=== PATIENT | female | born 1935 | race Caucasian/White ===

== ENCOUNTER 2023-09-13 15:43 | Inpatient (IN) | payer MEDICARE ==
[~2023-09-13] VITALS: Ht 162.6 cm; Wt 75.3 kg
[2023-09-13 16:00] VITALS: PULSE 130; PULSE 97; RESP 47; O2SAT 97
[2023-09-13] MEDS ORDERED: MethylPREDNISolone SOD SUCC 125 MG/2 ML VIAL IVP ONE (16:00)
[2023-09-13] MEDS ORDERED: 0.9% SODIUM CHLORIDE 10 ML SYRINGE IVP PRN (16:00)
[2023-09-13] MEDS ORDERED: NITROGLYCERIN 2% (1 GM=INCH) OINTMENT PACKET TP ONE (16:00)
[2023-09-13] MEDS ORDERED: DILT-72 PO (16:08)
[2023-09-13] MEDS ORDERED: SIMV-260 PO (16:08)
[2023-09-13] MEDS ORDERED: POTA-206 PO (16:08)
[2023-09-13] MEDS ORDERED: THIA100T80 PO (16:08)
[2023-09-13] MEDS ORDERED: MAGN-169 PO (16:08)
[2023-09-13] MEDS ORDERED: OMEP20 PO (16:08)
[2023-09-13 16:25] LABS: COVID AG,FIA SOURCE NASAL SWAB
[2023-09-13 16:31] LABS: BASOPHILS % (AUTO) 0.2 % (0.0-2.0); EOSINOPHILS % (AUTO) 0 % (1.0-6.0); HEMATOCRIT 37.3 % (36-46); HEMOGLOBIN 12.3 g/dL (12.0-16.0); LYMPHOCYTES # (AUTO) 0.7 K/uL (1.0-4.8); LYMPHOCYTES % (AUTO) 5.5 % (22.0-44.0); MEAN CORPUSCULAR HEMOGLOBIN 29.4 pg (26.0-34.0); MEAN CORPUSCULAR VOLUME 89 fL (80-100); MONOCYTES % (AUTO) 8.6 % (2.0-9.0); NEUTROPHILS # (AUTO) 10.3 K/uL (1.8-7.7); PLATELET COUNT (AUTO) 725 K/uL (150-450); RED BLOOD CELL COUNT(AUTO) 4.18 MIL/uL (4.00-5.20); RED CELL DISTRIBUTION WIDTH 14.2 % (11.5-14.5)
[2023-09-13 16:32] LABS: NEUTROPHILS % (AUTO) 85.7 % (40.0-70.0)
[2023-09-13 16:33] LABS: APPEARANCE,URINE HAZY (CLEAR); BILIRUBIN,URINE NEGATIVE (NEGATIVE); COLOR,URINE YELLOW (YELLOW); GLUCOSE, URINE (UA) NEGATIVE (NEGATIVE); KETONES,URINE 40-60 mg/dL (NEGATIVE); LEUKOCYTE ESTERASE ,URINE LARGE (NEGATIVE); NITRATE,URINE POSITIVE (NEGATIVE); OCCULT BLOOD,URINE SMALL (NEGATIVE); PROTEIN,URINE 30-70 mg/dL (NEGATIVE); SPECIFIC GRAVITIY, URINE 1.026 (1.003-1.030)
[2023-09-13 16:41] LABS: ANION GAP 17 mmol/L (8-16); CALCIUM, TOTAL 9.1 mg/dL (8.8-10.5); CARBON DIOXIDE 20 mmol/L (22-29); CHLORIDE 93 mmol/L (98-107); CREATININE 0.72 mg/dL (0.60-1.30); GLOMERULAR FILTR. RATE CALC > 60 mL/min (>60); GLUCOSE,RANDOM 180 mg/dL (70-110); POTASSIUM 3.8 mmol/L (3.5-5.1); SODIUM SERUM 130 mmol/L (136-145); UREA NITROGEN, BLOOD 18 mg/dL (7-18)
[2023-09-13 16:44] LABS: TROPONIN I-HIGH SENSITIVITY 40 ng/L (<51)
[2023-09-13 16:46] LABS: ALANINE AMINOTRANSFERASE 27 U/L (12-78); ALBUMIN 3.3 g/dL (3.4-5.0); ALKALINE PHOSPHATASE 121 U/L (46-116); ASPARTATE AMINOTRANSFERASE 18 U/L (15-37); BILIRUBIN,TOTAL 1.2 mg/dL (0.1-1.0); TOTAL PROTEIN, SERUM 6.9 g/dL (6.4-8.2)
[2023-09-13 16:48] LABS: B-TYPE NATRIURETIC PEPTIDE 471 pg/mL (0-100)
[2023-09-13 16:52] LABS: BACTERIA,URINE Many /HPF (None Seen); D-DIMER 8.76 mg/L FEU (0.00-0.50); INR 1.3 (0.9-1.1); PROTHROMBIN TIME 13.7 SEC (9.4-11.6); SQUAMOUS EPITHELIAL CELL,UR Few /LPF (None Seen); WBC,URINE 26-50 /HPF (0-5)
[2023-09-13 16:54] LABS: LACTIC ACID 2.7 mmol/L (0.4-2.0); SARS-COV2 (COVID) ANTIGEN,FIA Negative (Negative)
[2023-09-13 16:55] LABS: INFLUENZA TYPE A NEGATIVE FOR TYPE A (NEGATIVE); INFLUENZA TYPE B NEGATIVE FOR TYPE B (NEGATIVE)
[2023-09-13] MEDS ORDERED: IOHEXOL 350 MG/ML 100 ML VIAL ONE (17:11)
[2023-09-13] MEDS ORDERED: SODIUM CHLORIDE 0.9% 100 ML ONE (17:12)
[2023-09-13] MEDS ORDERED: SODIUM CHLORIDE 0.9% 1,550 ML IV ONE (17:15)
[2023-09-13] MEDS ORDERED: DILT120C48 PO (17:23)
[2023-09-13] MEDS ORDERED: APIX5TAB PO (17:23)
[2023-09-13] MEDS ORDERED: LISI1TAB53 PO (17:23)
[2023-09-13] MEDS ORDERED: PIPERACILLIN/TAZO 3.375 GM/D5W 50 ML IV ONE (17:30)
[2023-09-13] MEDS ORDERED: FUROSEMIDE 20 MG/2 ML VIAL IVP ONE (17:45)
[2023-09-13] MEDS ORDERED: MORPHINE SULFATE 2 MG/ML SYRINGE IVP ONE (18:00)
[2023-09-13 18:30] VITALS: PULSE 106; PULSE 112; RESP 41; O2SAT 93; O2SAT 94
[2023-09-13] MEDS ORDERED: *CLINICAL-LEVOFLOXACIN IVPB DOSING CLINICAL ONE (19:45)
[2023-09-13] MEDS ORDERED: ALBUTEROL SULFATE 2.5 MG/0.5 ML NEB SOLUTION NEB PRN (19:45)
[2023-09-13] MEDS ORDERED: SODIUM CHLORIDE 0.9% 1,000 ML IV SCH (19:45)
[2023-09-13] MEDS ORDERED: IPRATROPIUM BROMIDE 0.5 MG/2.5 ML NEB SOLUTION NEB PRN (19:45)
[2023-09-13] MEDS ORDERED: ONDANSETRON HCL 4 MG/2 ML VIAL IVP PRN (19:45)
[2023-09-13] MEDS: MetroNIDAZOLE 500 MG/NACL 100 ML IV SCH (20:14)
[2023-09-13] MEDS: LEVOFLOXACIN 750 MG/D5% WATER 150 ML IV SCH (21:29)
[2023-09-13] MEDS: CHLORHEXIDINE GLUCONATE 2% TOWELETTE [2'S/6'S] TP SCH (21:40)
[2023-09-13 21:54] LABS: ABG BASE EXCESS -6.8 mmol/L (-2.0-3.0); ABG CARBOXYHEMOGLOBIN 0.8 % (0.0-1.5); ABG HCO3 19.7 mmol/L (22.0-26.0); ABG METHEMOGLOBIN 0.9 % (0.0-1.5); ABG OXYGEN CONTENT 14.7 mL/dL (15.0-23.0); ABG OXYGEN SATURATION 95.5 % (95.0-98.0); ABG OXYHEMOGLOBIN 93.9 % (94.0-100.0); ABG PCO2 29 mmHg (35-45); ABG PH 7.404 (7.35-7.450); ABG TOTAL HEMOGLOBIN 11.1 G/dL (12.0-18.0); PO2, ARTERIAL BG 74.9 mmHg (71.0-79.0); SOURCE, BLOOD GAS ARTERIAL; TEMPERATURE, FAHRENHEIT, BG 98.5 FAHREN (96.0-98.6)
[2023-09-13 21:55] LABS: ALLEN TEST, BLOOD GAS POS; INSPIRATORY TIME, BG 0.9 SEC; O2 DEVICE,BLOOD GAS BIPAP (ROOM AIR); SITE, BLOOD GAS RT RADIAL; SPONTANEOUS VT, BG 398 ml
[2023-09-13 22:39] VITALS: PULSE 94; RESP 44; O2SAT 93
[2023-09-13] MEDS ORDERED: KETOROLAC TROMETHAMINE 15 MG/ML VIAL IVP ONE (23:00)
[2023-09-13 23:47] LABS: BASOPHILS % (AUTO) 0.2 % (0.0-2.0); EOSINOPHILS % (AUTO) 0 % (1.0-6.0); HEMATOCRIT 30.6 % (36-46); HEMOGLOBIN 10.2 g/dL (12.0-16.0); LYMPHOCYTES # (AUTO) 0.2 K/uL (1.0-4.8); LYMPHOCYTES % (AUTO) 1.2 % (22.0-44.0); MEAN CORPUSCULAR HEMOGLOBIN 29.7 pg (26.0-34.0); MEAN CORPUSCULAR HGB CONC 33.5 G/dL (31.0-37.0); MEAN CORPUSCULAR VOLUME 89 fL (80-100); MONOCYTES # (AUTO) 0.9 K/uL (0.1-1.0); NEUTROPHILS # (AUTO) 16.4 K/uL (1.8-7.7); PLATELET COUNT (AUTO) 531 K/uL (150-450); RED BLOOD CELL COUNT(AUTO) 3.45 MIL/uL (4.00-5.20); RED CELL DISTRIBUTION WIDTH 14.3 % (11.5-14.5); WHITE BLOOD COUNT (AUTO) 17.5 K/uL (4.5-11.0)
[2023-09-13 23:50] LABS: NEUTROPHILS % (AUTO) 93.6 % (40.0-70.0)
[2023-09-14] VITALS (7 sets, daily range): BP systolic 104–216; BP diastolic 55–73; PULSE 107–135; RESP 31–42; TEMP 97.5–99.2; O2SAT 96
[2023-09-14 00:08] LABS: TROPONIN I-HIGH SENSITIVITY 32 ng/L (<51)
[2023-09-14] MEDS ORDERED: IOHEXOL 350 MG/ML 100 ML VIAL ONE (00:13)
[2023-09-14] MEDS ORDERED: SODIUM CHLORIDE 0.9% 100 ML ONE (00:13)
[2023-09-14] MEDS ORDERED: DiphenhydrAMINE HCL 50 MG/ML VIAL IVP ONE (00:45)
[2023-09-14] MEDS ORDERED: MELATONIN 3 MG TABLET PO ONE (00:45)
[2023-09-14] MEDS ORDERED: DILTIAZEM HCL 5 MG/ML 5 ML VIAL IVP ONE (01:15)
[2023-09-14 02:36] LABS: % IRON SATURATION 17.4 % (22-44)
[2023-09-14] MEDS ORDERED: SODIUM CHLORIDE 0.9% 250 ML IV ONE ×2 (03:48→22:01)
[2023-09-14] MEDS: MetroNIDAZOLE 500 MG/NACL 100 ML IV SCH ×3 (04:13→20:23)
[2023-09-14 06:24] LABS: HEMATOCRIT 31.6 % (36-46); HEMOGLOBIN 10.5 g/dL (12.0-16.0); MEAN CORPUSCULAR HGB CONC 33.1 G/dL (31.0-37.0); MEAN CORPUSCULAR VOLUME 91 fL (80-100); PLATELET COUNT (AUTO) 409 K/uL (150-450); RED BLOOD CELL COUNT(AUTO) 3.49 MIL/uL (4.00-5.20); RED CELL DISTRIBUTION WIDTH 14.6 % (11.5-14.5); WHITE BLOOD COUNT (AUTO) 18.8 K/uL (4.5-11.0)
[2023-09-14 06:39] LABS: ANION GAP 14 mmol/L (8-16); CALCIUM, TOTAL 8.1 mg/dL (8.8-10.5); CARBON DIOXIDE 20 mmol/L (22-29); CHLORIDE 99 mmol/L (98-107); CREATININE 0.65 mg/dL (0.60-1.30); GLOMERULAR FILTR. RATE CALC > 60 mL/min (>60); GLUCOSE,RANDOM 125 mg/dL (70-110); SODIUM SERUM 133 mmol/L (136-145); UREA NITROGEN, BLOOD 19 mg/dL (7-18)
[2023-09-14 06:43] LABS: TROPONIN I-HIGH SENSITIVITY 32 ng/L (<51)
[2023-09-14] MEDS ORDERED: HEPARIN SODIUM,PORCINE 5,000 UNITS/ML VIAL IVP PRN ×2 (08:30)
[2023-09-14 08:56] LABS: BAND NEUTROPHILS % (MANUAL) 19 % (0-5); EOSINOPHILS % (MANUAL) 1 % (1-6); LYMPHOCYTES % (MANUAL) 2 % (22-44); MONOCYTES % (MANUAL) 1 % (2-9); RBC MORPHOLOGY COMMENT NORMAL RBC MORPH; SEGMENTED NEUTROPHILS % 77 % (40-70); TOTAL CELLS COUNTED 100
[2023-09-14 09:38] LABS: INR 1.4 (0.9-1.1)
[2023-09-14] MEDS: FAMOTIDINE 20 MG/2 ML VIAL IVP SCH ×2 (09:42→20:22)
[2023-09-14] MEDS: HEPARIN SODIUM 25000 UNITS/D5W 250 ML IV PRN (09:45)
[2023-09-14] MEDS: RINGERS SOLUTION,LACTATED 1,000 ML IV SCH (11:13)
[2023-09-14 11:33] LABS: OCCULT BLOOD,GASTRIC FLUID POSITIVE (NEGATIVE); PH, GASTRIC OKAY
[2023-09-14 14:27] LABS: HEMATOCRIT 31.6 % (36-46); HEMOGLOBIN 10.3 g/dL (12.0-16.0); MEAN CORPUSCULAR HEMOGLOBIN 29.4 pg (26.0-34.0); MEAN CORPUSCULAR HGB CONC 32.5 G/dL (31.0-37.0); MEAN CORPUSCULAR VOLUME 90 fL (80-100); PLATELET COUNT (AUTO) 475 K/uL (150-450); RED BLOOD CELL COUNT(AUTO) 3.49 MIL/uL (4.00-5.20); RED CELL DISTRIBUTION WIDTH 14.7 % (11.5-14.5); WHITE BLOOD COUNT (AUTO) 20.4 K/uL (4.5-11.0)
[2023-09-14 15:27] LABS: BAND NEUTROPHILS % (MANUAL) 15 % (0-5); LYMPHOCYTES % (MANUAL) 8 % (22-44); MONOCYTES % (MANUAL) 6 % (2-9); SEGMENTED NEUTROPHILS % 71 % (40-70); TOTAL CELLS COUNTED 100
[2023-09-14] MEDS: MORPHINE SULFATE 2 MG/ML SYRINGE IVP PRN (16:06)
[2023-09-14 21:28] LABS: HEMATOCRIT 29.3 % (36-46); HEMOGLOBIN 9.7 g/dL (12.0-16.0); MEAN CORPUSCULAR HEMOGLOBIN 29.8 pg (26.0-34.0); MEAN CORPUSCULAR HGB CONC 33.1 G/dL (31.0-37.0); MEAN CORPUSCULAR VOLUME 90 fL (80-100); PLATELET COUNT (AUTO) 466 K/uL (150-450); RED BLOOD CELL COUNT(AUTO) 3.25 MIL/uL (4.00-5.20); RED CELL DISTRIBUTION WIDTH 15.1 % (11.5-14.5); WHITE BLOOD COUNT (AUTO) 20.1 K/uL (4.5-11.0)
[2023-09-14] MEDS: LEVOFLOXACIN 750 MG/D5% WATER 150 ML IV SCH (21:59)
[2023-09-14 22:09] LABS: BAND NEUTROPHILS % (MANUAL) 14 % (0-5); LYMPHOCYTES % (MANUAL) 5 % (22-44); MONOCYTES % (MANUAL) 6 % (2-9); RBC MORPHOLOGY COMMENT ABNORMAL RBC MORPH; SEGMENTED NEUTROPHILS % 75 % (40-70); TOTAL CELLS COUNTED 100
[2023-09-14] MEDS: CHLORHEXIDINE GLUCONATE 2% TOWELETTE [2'S/6'S] TP SCH (22:38)
[2023-09-15] VITALS (7 sets, daily range): BP systolic 105–134; BP diastolic 64–78; PULSE 121–137; RESP 18–35; TEMP 97.5–99.7; O2SAT 97
[2023-09-15] MEDS: MetroNIDAZOLE 500 MG/NACL 100 ML IV SCH ×3 (02:55→20:35)
[2023-09-15] MEDS: HEPARIN SODIUM 25000 UNITS/D5W 250 ML IV PRN (05:23)
[2023-09-15] MEDS: RINGERS SOLUTION,LACTATED 1,000 ML IV SCH (06:00)
[2023-09-15 06:03] LABS: BASOPHILS % (AUTO) 0.1 % (0.0-2.0); EOSINOPHILS % (AUTO) 0 % (1.0-6.0); HEMATOCRIT 27.9 % (36-46); HEMOGLOBIN 9.4 g/dL (12.0-16.0); LYMPHOCYTES # (AUTO) 0.5 K/uL (1.0-4.8); LYMPHOCYTES % (AUTO) 3.1 % (22.0-44.0); MEAN CORPUSCULAR HEMOGLOBIN 29.9 pg (26.0-34.0); MEAN CORPUSCULAR HGB CONC 33.6 G/dL (31.0-37.0); MEAN CORPUSCULAR VOLUME 89 fL (80-100); MONOCYTES # (AUTO) 1.3 K/uL (0.1-1.0); MONOCYTES % (AUTO) 8.4 % (2.0-9.0); NEUTROPHILS # (AUTO) 13.7 K/uL (1.8-7.7); PLATELET COUNT (AUTO) 463 K/uL (150-450); RED BLOOD CELL COUNT(AUTO) 3.15 MIL/uL (4.00-5.20); WHITE BLOOD COUNT (AUTO) 15.5 K/uL (4.5-11.0)
[2023-09-15 06:10] LABS: ANION GAP 12 mmol/L (8-16); CALCIUM, TOTAL 8.1 mg/dL (8.8-10.5); CARBON DIOXIDE 22 mmol/L (22-29); CHLORIDE 101 mmol/L (98-107); CREATININE 0.57 mg/dL (0.60-1.30); GLOMERULAR FILTR. RATE CALC > 60 mL/min (>60); GLUCOSE,RANDOM 120 mg/dL (70-110); POTASSIUM 3.6 mmol/L (3.5-5.1); SODIUM SERUM 135 mmol/L (136-145); UREA NITROGEN, BLOOD 23 mg/dL (7-18)
[2023-09-15 06:53] LABS: NEUTROPHILS % (AUTO) 88.4 % (40.0-70.0)
[2023-09-15] MEDS ORDERED: AMIODARONE HCL 150 MG in DEXTROSE 5%-WATER 97 ML IV ONE (07:30)
[2023-09-15] MEDS ORDERED: AMIODARONE HCL 360 MG in DEXTROSE 5%-WATER 242.8 ML IV ONE (07:30)
[2023-09-15] MEDS: FAMOTIDINE 20 MG/2 ML VIAL IVP SCH ×2 (08:09→20:35)
[2023-09-15] MEDS: MORPHINE SULFATE 2 MG/ML SYRINGE IVP PRN ×2 (08:09→20:52)
[2023-09-15] MEDS ORDERED: AMIODARONE HCL 540 MG in DEXTROSE 5%-WATER 239.2 ML IV ONE (13:30)
[2023-09-15] MEDS: CHLORHEXIDINE GLUCONATE 2% TOWELETTE [2'S/6'S] TP SCH (20:36)
[2023-09-15] MEDS: LEVOFLOXACIN 750 MG/D5% WATER 150 ML IV SCH (22:29)
[2023-09-16] VITALS: BP 113/69; PULSE 121; RESP 32; TEMP 97.8
[2023-09-16] MEDS: RINGERS SOLUTION,LACTATED 1,000 ML IV SCH (02:29)
[2023-09-16] MEDS: MetroNIDAZOLE 500 MG/NACL 100 ML IV SCH ×2 (03:57→11:12)
[2023-09-16 04:00] VITALS: BP 122/80; PULSE 107; RESP 29; TEMP 97.5
[2023-09-16 05:49] LABS: EOSINOPHILS % (AUTO) 0.1 % (1.0-6.0); HEMATOCRIT 25.6 % (36-46); HEMOGLOBIN 8.6 g/dL (12.0-16.0); LYMPHOCYTES # (AUTO) 0.6 K/uL (1.0-4.8); LYMPHOCYTES % (AUTO) 4.4 % (22.0-44.0); MEAN CORPUSCULAR HEMOGLOBIN 29.6 pg (26.0-34.0); MEAN CORPUSCULAR HGB CONC 33.4 G/dL (31.0-37.0); MEAN CORPUSCULAR VOLUME 89 fL (80-100); MONOCYTES # (AUTO) 0.8 K/uL (0.1-1.0); MONOCYTES % (AUTO) 6.3 % (2.0-9.0); NEUTROPHILS # (AUTO) 11.8 K/uL (1.8-7.7); NEUTROPHILS % (AUTO) 89.2 % (40.0-70.0); PLATELET COUNT (AUTO) 362 K/uL (150-450); RED BLOOD CELL COUNT(AUTO) 2.89 MIL/uL (4.00-5.20); RED CELL DISTRIBUTION WIDTH 14.7 % (11.5-14.5); WHITE BLOOD COUNT (AUTO) 13.3 K/uL (4.5-11.0)
[2023-09-16 06:05] LABS: ANION GAP 9 mmol/L (8-16); CALCIUM, TOTAL 7.9 mg/dL (8.8-10.5); CARBON DIOXIDE 24 mmol/L (22-29); CHLORIDE 101 mmol/L (98-107); CREATININE 0.45 mg/dL (0.60-1.30); GLOMERULAR FILTR. RATE CALC > 60 mL/min (>60); GLUCOSE,RANDOM 117 mg/dL (70-110); PHOSPHORUS 2.5 mg/dL (2.5-4.9); POTASSIUM 3.5 mmol/L (3.5-5.1); SODIUM SERUM 134 mmol/L (136-145); UREA NITROGEN, BLOOD 17 mg/dL (7-18)
[2023-09-16] MEDS ORDERED: AMIODARONE HCL 750 MG in DEXTROSE 5%-WATER 485 ML IV SCH (07:30)
[2023-09-16 08:00] VITALS: BP 133/88; PULSE 111; RESP 27; TEMP 98.4
[2023-09-16] MEDS: FAMOTIDINE 20 MG/2 ML VIAL IVP SCH (08:22)
[2023-09-16] MEDS ORDERED: DILTIAZEM HCL 5 MG/ML 5 ML VIAL IVP ONE (09:00)
[2023-09-16] MEDS: HEPARIN SODIUM 25000 UNITS/D5W 250 ML IV PRN (11:13)
[2023-09-16 12:00] VITALS: BP 136/82; PULSE 123; RESP 25; TEMP 98.9
[2023-09-16 16:00] VITALS: BP 136/84; PULSE 118; RESP 27; TEMP 99.3
[2023-09-16] MEDS ORDERED: PANTOPRAZOLE SODIUM 40 MG/VIAL IVP SCH (21:00)
== END 2023-09-16 20:17 | disposition short-term general hospital (02) | DRG 871 ==
LOC: EMS 15:44 → AHU 19:58 → 5S 21:12 → AHU 21:12 → ICU 09-14 01:15
PROVIDERS: ADMIT Internal Medicine; ATTEND Internal Medicine
PROC: 5A09357 Assistance with Respiratory Ventilation, Less than 24 Consecutive Hours, Continuous Positive Airway Pressure (ICD-10-PCS; principal; 2023-09-13)
PROC: 0D9670Z Drainage of Stomach with Drainage Device, Via Natural or Artificial Opening (ICD-10-PCS; 2023-09-13)
DX: A41.9 Sepsis, unspecified organism (principal); G93.41 Metabolic encephalopathy; J15.69 Pneumonia due to other Gram-negative bacteria; J96.01 Acute respiratory failure with hypoxia; I26.99 Other pulmonary embolism without acute cor pulmonale; J69.0 Pneumonitis due to inhalation of food and vomit; J98.11 Atelectasis; N39.0 Urinary tract infection, site not specified; K59.39 Other megacolon; I82.451 Acute embolism and thrombosis of right peroneal vein; I82.491 Acute embolism and thrombosis of other specified deep vein of right lower extremity; K40.30 Unilateral inguinal hernia, with obstruction, without gangrene, not specified as recurrent; Z66 Do not resuscitate; E80.6 Other disorders of bilirubin metabolism; I10 Essential (primary) hypertension; I48.91 Unspecified atrial fibrillation; D64.9 Anemia, unspecified; E78.00 Pure hypercholesterolemia, unspecified; K21.9 Gastro-esophageal reflux disease without esophagitis; Z20.822 Contact with and (suspected) exposure to COVID-19; S30.0XXA Contusion of lower back and pelvis, initial encounter; W18.39XA Other fall on same level, initial encounter; Y93.89 Activity, other specified; Y92.89 Other specified places as the place of occurrence of the external cause; Y99.8 Other external cause status; Z87.440 Personal history of urinary (tract) infections; Z79.01 Long term (current) use of anticoagulants
CPT/HCPCS: 36600; 71045; 71275; 74177; 74178; 80048; 80053; 81001; 82271; 82805; 83540; 83550; 83605; 83735; 83880; 84100; 84145; 84484; 85025; 85045; 85379; 85610; 85730; 87040; 87081; 87086; 87186; 87804; 93005; 93306; 93970; 94660; 94799; 99291; G0238; J0282; J1200; J1644; J1885; J1940; J1956; J2270; J2543; J2930; J3490; J7030; J7050; J7060; J7120; Q9967; 36415-L1; 36415-TC